=== PATIENT | male | born 1955 | race Caucasian/White ===

== ENCOUNTER 2020-04-26 15:41 | Emergency (ER) | payer SELFPAY ==
[2020-04-26] MEDS ORDERED: Ondansetron 4 MG Tab.DIS PO ONE (16:05)
[2020-04-26] MEDS ORDERED: Lidocaine 1% 10 ML MDV INJECT ONE (16:06)
[2020-04-26] MEDS ORDERED: Diphtheria,Pertussis(Acell),Tetanus Vaccine 0.5 ML Syringe IM ONE ×2 (16:07→16:30)
--- NOTE | 2020-04-26 16:13 | EDM.PDOC ---
ED HPI GENERAL MEDICAL PROBLEM - General Chief Complaint: Upper Extremity Injury/Pain Stated Complaint: L HAND LAC Time Seen by Provider: 04/26/20 15:50 Source of Information: Reports: Patient, RN Notes Reviewed History Limitations: Reports: No Limitations - History of Present Illness INITIAL COMMENTS - FREE TEXT/NARRATIVE: The patient is a 64-year-old male who presents to the ED for evaluation of his left hand injury. Patient was using a table saw at home, and ended up getting his left hand to close to the blade, there are multiple gouges on his left hand, involving the thumb, pointer finger, and middle finger. There are 3-4 gouges on the lateral ulnar aspect of the patient's thumb., Bleeding seems to be controlled at this time. There is a gouge type laceration on the patient's distal fingertip on the anterior pad portion. Regarding the pointer finger, there is some nail involvement where there is a gouge taken out of the nail, and a small V shaped flap laceration to the radial aspect of the patient's finger. Regarding the middle finger, there is another deep gouge involving the nail, but no other major injuries that look like they need to be repaired. Patient has no numbness or tingling distal to the injuries, and has no apparent tendinous injury. Patient notes he is right-hand dominant. He states he feels slightly nauseous, but has no other sick symptoms like fevers or chills, cough/shortness of breath. He is not sure of his last tetanus booster. Left Hand Pain Score (Numeric/FACES): 3 - Related Data Allergies Allergy/AdvReac Type Severity Reaction Status Date / Time Penicillins Allergy Intermediate Swelling Verified 04/26/20 16:26 Home Meds: Home Meds DULoxetine [Cymbalta] 60 mg PO DAILY 04/26/20 [History] Hydrocodone/Acetaminophen [Hydrocodone-Acetamin 5-325 mg] 1 each PO Q6H PRN #12 tablet 04/26/20 [Rx] traZODone HCl [Trazodone HCl] 100 mg PO BEDTIME 04/26/20 [History] Past Medical History HEENT History: Reports: Impaired Vision Psychiatric History: Reports: Anxiety, Depression - Past Surgical History HEENT Surgical History: Reports: Oral Surgery, Tonsillectomy Other HEENT Surgeries/Procedures: insomnnia Musculoskeletal Surgical History: Reports: Shoulder Replacement Other Musculoskeletal Surgeries/Procedures:: left Social & Family History - Tobacco Use Tobacco Use Status *Q: Never Tobacco User - Caffeine Use Caffeine Use: Reports: Soda - Recreational Drug Use Recreational Drug Use: No Review of Systems - Review of Systems Review Of Systems: Comprehensive ROS is negative, except as noted in HPI. ED EXAM, GENERAL - Physical Exam Exam: See Below Exam Limited By: No Limitations General Appearance: Alert, WD/WN, No Apparent Distress Respiratory/Chest: No Respiratory Distress, Lungs Clear, Normal Breath Sounds, No Accessory Muscle Use, Chest Non-Tender Cardiovascular: Normal Peripheral Pulses, Regular Rate, Rhythm, No Murmur Peripheral Pulses: 2+: Radial (L), Radial (R) Extremities: Normal Range of Motion, Normal Capillary Refill Neurological: Alert, Oriented, Normal Cognition, No Motor/Sensory Deficits Psychiatric: Normal Affect, Normal Mood Skin Exam: Warm, Dry, Normal Color, No Rash, Wound/Incision (Multiple injuries: Involving the left thumb, pointer finger, and middle finger. All of which are mainly gouge type injuries which cannot be repaired. There is one V shaped laceration on the patient's distal pointer finger, that looks like it could be repaired with sutures at this time. Length of the wounds are all hard to assess due to the nature of the injury.) ED TRAUMA EXTREMITY PROCEDURES - Laceration/Wound Repair Left Distal Digit - 2nd (Index) Lac/Wound Length In cm: 1 Appearance: Superficial, Irregular (V-shaped), Clean Distal NVT: Neuro & Vascular Intact, No Tendon Injury Anesthetic Type: Local Local Anesthesia - Lidocaine (Xylocaine): 1% Plain Local Anesthetic Volume: 2cc Skin Prep: Chlorhexidine (Hibiciens), Saline Exploration/Debridement/Repair: Wound Explored, In a Bloodless Field, Explored to Base, No Foreign Material Found Closed With: Sutures Suture Size: 4-0 # of Sutures: 2 Suture Type: Prolene, Interrupted, Simple Sterile Dressing Applied: Nurse Tetanus Status Addressed: Yes Complications: No Left Distal Digit - 1st (Thumb) Lac/Wound Length In cm: 5 Appearance: Superficial, Linear (but has jagged edges), Clean Distal NVT: Neuro & Vascular Intact, No Tendon Injury Anesthetic Type: Local Local Anesthesia - Lidocaine (Xylocaine): 1% Plain Local Anesthetic Volume: 2cc Skin Prep: Chlorhexidine (Hibiciens), Saline Exploration/Debridement/Repair: Wound Explored, In a Bloodless Field, Explored to Base, No Foreign Material Found Closed With: Sutures Suture Size: 4-0 # of Sutures: 3 Suture Type: Prolene, Interrupted, Simple Sterile Dressing Applied: Nurse Tetanus Status Addressed: Yes Complications: No Course - Vital Signs Last Recorded V/S: Last Vital Signs Temp 97.6 F 04/26/20 15:59 Pulse 57 L 04/26/20 15:59 Resp 20 04/26/20 15:59 BP 134/87 04/26/20 15:59 Pulse Ox 96 04/26/20 15:59 - Orders/Labs/Meds Orders: Active Orders 24 hr Category Date Time Status Vaccines to be Administered [RC] PER UNIT ROUTINE Care 04/26/20 16:08 Active Vaccines to be Administered [RC] PER UNIT ROUTINE Care 04/26/20 16:22 Active Hand Comp Min 3V Lt [CR] Stat Exams 04/26/20 16:05 Taken Meds: Medications Discontinued Medications Generic Name Dose Route Start Last Admin Trade Name Martha PRN Reason Stop Dose Admin Diphtheria/Tetanus/Acell Pertussis 0.5 ml 04/26/20 16:30 04/26/20 16:40 Boostrix IM 04/26/20 16:31 0.5 ml .ONCE ONE Administration Lidocaine HCl 10 ml 04/26/20 16:06 04/26/20 16:22 Xylocaine 1% INJECT 04/26/20 16:07 10 ml ONETIME ONE Administration Ondansetron HCl 4 mg 04/26/20 16:05 04/26/20 16:22 Zofran Odt PO 04/26/20 16:06 4 mg ONETIME ONE Administration - Re-Assessments/Exams Free Text/Narrative Re-Assessment/Exam: 04/26/20 16:20 Patient's injuries were assessed, will get x-ray, to make sure there was no bone involvement. Patient's tendons appear to be intact he has good strength and range of motion. Most of his injuries are deep gouges, that do not have a lot of skin left to repair. There are 1 or 2 areas will likely benefit from sutures, and the others will unfortunately have to be left to heal by secondary intention. We will refer the patient to hand specialist in [place] for evaluation and management. 04/26/20 16:24 The patient's hand x-ray does not appear to have any acute bony injury by my review; official radiology read is pending. Departure - Departure Time of Disposition: 17:14 Disposition: Home, Self-Care 01 Condition: Good Clinical Impression: Injury of left hand Qualifiers: Encounter type: initial encounter Qualified Code(s): S69.92XA - Unspecified injury of left wrist, hand and finger(s), initial encounter Laceration of multiple sites of hand and fingers Qualifiers: Encounter type: initial encounter Laterality: left Qualified Code(s): S61.412A - Laceration without foreign body of left hand, initial encounter - Discharge Information *PRESCRIPTION DRUG MONITORING PROGRAM REVIEWED*: Yes *COPY OF PRESCRIPTION DRUG MONITORING REPORT IN PATIENT SALVADOR: No Prescriptions: Hydrocodone/Acetaminophen [Hydrocodone-Acetamin 5-325 mg] 1 each PO Q6H PRN #12 tablet PRN Reason: Pain Instructions: Laceration Care, Adult, [id number], Sutures, Dharmesh, or Adhesive Wound Closure, [id number] Referrals: Fred Colvin MD [Primary Care Provider] - Forms: ED Department Discharge Additional Instructions: You have been evaluated in the ED for your lacerations/hand injury. Sutures will need to stay in for 10-14 days. You may return to the ED or any clinic for removal. Please keep this area clean and dry, you may cleanse with regular soap and water. No vigorous scrubbing. Please try to avoid submerging the affected area in water for prolonged periods of time until the sutures are removed. Watch out for signs of infection like increased redness, swelling, pain at the laceration site, or if you should develop any fevers or chills. If you are experiencing pain, you may elevate the hand above the level of the heart, and utilize Tylenol ibuprofen every 6 hours as needed for further pain management. You were given a prescription for a strong pain medication, hydrocodone/acetaminophen 5/325mg, please take 1 tab every 6 hours as needed for pain not relieved by Tylenol or ibuprofen alone. Please note this medication does contain Tylenol in it, so do not take more than 4000 mg in a 24-hour time span. These medications can be addictive, so please take as few as possible to achieve adequate pain control. These meds can also be quite constipating, recommend that you increase your oral fluid intake and take a stool softener like MiraLAX while taking these medications. Do not drive while taking this medication. Due to the extent of your injury, I would highly recommend you follow-up with a hand specialist at [facility] in [place]. Telephone number there is [phone], please call Wednesday morning and obtain an appointment for reevaluation and further management. Please return to ED if your symptoms change or worsen. Sepsis Event Note (ED) - Evaluation Sepsis Screening Result: No Definite Risk - Focused Exam Vital Signs: Vital Signs Temp Pulse Resp BP Pulse Ox 04/26/20 15:59 97.6 F 57 L 20 134/87 96 - My Orders Last 24 Hours: My Active Orders 04/26/20 16:05 Hand Comp Min 3V Lt [CR] Stat 04/26/20 16:08 Vaccines to be Administered [RC] PER UNIT ROUTINE 04/26/20 16:22 Vaccines to be Administered [RC] PER UNIT ROUTINE - Assessment/Plan Last 24 Hours: My Active Orders 04/26/20 16:05 Hand Comp Min 3V Lt [CR] Stat 04/26/20 16:08 Vaccines to be Administered [RC] PER UNIT ROUTINE 04/26/20 16:22 Vaccines to be Administered [RC] PER UNIT ROUTINE
--- NOTE | 2020-04-27 10:13 | CR ---
Left hand: 3 views of the left hand were obtained. Comparison: No prior hand exam is available. Findings: Osseous: Cyst is seen within the distal navicular bone with joint space narrowing noted off the distal navicular bone. These findings are most likely due to degenerative change. Minimal degenerative change is noted within the CMC joint of the thumb. No acute fracture or other bony abnormality is appreciated. Soft tissues: Areas of soft tissue injury are seen. Impression: 1. Degenerative change within the wrist as noted above. 2. No acute bony abnormality definitely appreciated. 3. Areas of soft tissue injury. Diagnostic code #3
== END 2020-04-26 18:10 | disposition home or self-care (01) ==
LOC: JD.ED 15:41
DX: S61.211A Laceration without foreign body of left index finger without damage to nail, initial encounter (principal); S61.012A Laceration without foreign body of left thumb without damage to nail, initial encounter; F41.9 Anxiety disorder, unspecified; F32.9 Major depressive disorder, single episode, unspecified; Z79.899 Other long term (current) drug therapy; Z88.0 Allergy status to penicillin; Z23 Encounter for immunization; W31.2XXA Contact with powered woodworking and forming machines, initial encounter; Y92.009 Unspecified place in unspecified non-institutional (private) residence as the place of occurrence of the external cause
CPT/HCPCS: 12002; 73130-26-LT; 73130-LT; 90471; 90715; 99283; 99283-25; A9270-GY; J2001